=== PATIENT | male | born 1945 | race Caucasian/White ===

== ENCOUNTER 2016-11-06 13:00 | Inpatient (IN) | payer MEDICARE, OTHER ==
[~2016-11-06] VITALS: Ht 185.4 cm; Wt 97.7 kg
--- NOTE | ~2016-11-06 | OR ---
PATIENT'S NAME: JAQUELIN CRANDALL [facility] AGE: 71 Y [address] ROOM: [address] [address] [place] [facility] [place] DATE: 11/13/2016 OR/Procedure Report DISCHARGE DATE: FAMILY PHYSICIAN: Gordon Copeland MD ATTENDING PHYSICIAN: DOMINIQUE IVEY SURGEON: Dominique Ivey MD SUPERVISOR RIPRAP PLACING: Srini Hi MD. DATE OF PROCEDURE: 11/13/2016 PREOPERATIVE DIAGNOSIS: Benign prostatic hyperplasia with bladder outlet obstruction. POSTOPERATIVE DIAGNOSIS: Benign prostatic hyperplasia with bladder outlet obstruction. OPERATION PERFORMED: Robotic-assisted laparoscopic simple prostatectomy. ANESTHESIA ADMINISTERED: General endotracheal anesthesia. INDICATIONS FOR PROCEDURE: The patient is a pleasant 71-year-old male with history of BPH with bladder outlet obstruction. His symptoms had been refractory to pharmacologic therapy. The patient was explained the risks, benefits, indications, and alternatives to above procedure and wished to proceed and consented freely. DESCRIPTION OF OPERATION: The patient was brought back to the operating room, where he was placed on the OR table in the supine position. A surgical time- out was called where patient identification, surgical site, and procedure was then verified. The patient then underwent successful administration of general endotracheal anesthesia. The patient was then moved and placed in a low lithotomy position. His abdomen and genital area were then prepped and draped in the usual sterile fashion. The patient was then placed in Trendelenburg position. A Hill catheter had been anchored utilizing a 16- Nigerian catheter. We then made a supraumbilical incision. The rectus fascia was grasped and elevated, and we pierced the peritoneum with a Veress needle and insufflated to 15 mmHg. We then passed an 8 mm non-bladed trocar easily into the peritoneum. We immediately passed the laparoscope and did not observe any injury to internal structure, so we placed 4 additional trocars, two 8 mm trocars in the right abdomen and an 8 mm and 12 mm trocar in the left abdomen in the routine positions for the robotic technique. The da Castro Xi robot was then docked and used for the remainder of the case. I began by opening up the posterior bladder wall near the dome and dropped down in posterior bladder flap where I was able to easily view his bladder neck and prostate at this point. After making the cystotomy, I placed a Vicryl retraction suture in his median lobe and this was used to elevate his prostate PATIENT'S NAME: JAQUELIN CRANDALL [facility] AGE: 71 Y [address] ROOM: [id number] [place], [place] [address] [place] [facility] [place] DATE: 11/13/2016 OR/Procedure Report DISCHARGE DATE: FAMILY PHYSICIAN: Gordon Copeland MD ATTENDING PHYSICIAN: DOMINIQUE IVEY and better visualize the junction of his bladder neck and prostate and I could also easily view the ureteral orifices at this point. I then started by making a posterior incision in the mucosa overlying the adenoma. Once the plane between the prostate capsule and the adenoma was identified, I began performing enucleation of the prostate using monopolar scissors and blunt dissection. I continued in this plane between the prostate capsule and adenoma. I extended my mucosal incision circumferentially around the prostate. I was able to successfully enucleate the entire prostate adenoma from the prostatic fossa, and divided the urethra at the prostatic apex. Hemostasis was obtained by direct cautery and suture ligation in the prostatic fossa. I utilized a 2-0 V-Loc suture to advance the bladder mucosa down into the prostatic fossa. Hemostasis was inspected for and was adequate. Given some urethral stenosis, we did have to gently dilate his meatus using male urethral sounds and then was able to place a 22-Nigerian 3-way Hill catheter and the balloon was inflated to 40 mL and the cystotomy was closed in 2 layers using 2-0 V-Loc running sutures. The bladder was irrigated and no leak was noted and our closure was watertight. The prostate adenoma was placed in an EndoCatch bag. The robot was then undocked. The EndoCatch bag was drawn up through the midline wound. All trocars were removed. The supraumbilical incision was extended to allow for removal of the prostate adenoma. The rectus fascia was then reapproximated with a heavy PDS suture and the skin was closed with running subcuticular stitches. All wounds were infiltrated with Marcaine and covered with Dermabond. The patient was then taken out of the lithotomy position where he was then extubated without event, transferred to the recovery bed and transported to the recovery room in good condition. COMPLICATIONS: None. ESTIMATED BLOOD LOSS: 100 mL. SPECIMENS: Prostate adenoma for pathologic analysis. DRAINS: Indwelling 22-Nigerian 3-way Hill catheter to continuous bladder irrigation. FOLLOWUP PLAN: We will plan to admit the patient overnight for observation and wean him off the irrigation by tomorrow morning with likely discharge home on postoperative day #2. DOMINIQUE IVEY MD GP/modl PATIENT'S NAME: JAQUELIN CRANDALL [facility] AGE: 71 Y [address] ROOM: [place] [address] [place]: [facility] [place]MIT DATE: 11/13/2016 OR/Procedure Report DISCHARGE DATE: FAMILY PHYSICIAN: Gordon Copeland MD ATTENDING PHYSICIAN: DOMINIQUE IVEY /[id number] CC: Gordon Copeland MD d: 11/13/16 1052 t: 11/18/16 0938, OPERATIVE SUMMARY
--- NOTE | ~2016-11-06 | DS ---
PATIENT'S NAME: JAQUELIN CRANDALL [facility] AGE: 71 Y [address] ROOM: [address] [address] LOCATION: [facility] ADMIT DATE: 11/13/2016 Discharge Summary DISCHARGE DATE: 11/19/2016 FAMILY PHYSICIAN: Gordon Copeland MD ATTENDING PHYSICIAN: Dominique Ivey ADMISSION DIAGNOSIS: Benign prostatic hyperplasia with bladder outlet obstruction. DISCHARGE DIAGNOSIS: Benign prostatic hyperplasia with bladder outlet obstruction. OPERATION PERFORMED: Robotic-assisted laparoscopic simple prostatectomy. INDICATIONS FOR PROCEDURE: The patient is a pleasant 71-year-old male with history of BPH with bladder outlet obstruction, whose symptoms have been refractory to pharmacologic therapy. The patient ultimately opted for operative intervention. HOSPITAL COURSE: The patient underwent the above-stated procedure, which was a Robotic-assisted laparoscopic simple prostatectomy without complication. Prior to discharge home, we were able to wean him off the continuous bladder irrigation, and he was passing flatus and tolerating regular diet. Also, his pain was well controlled prior to discharge home. During his hospitalization, he did have several clots, which we were having difficulty freeing with his indwelling catheter, which was exchanged out for a 24-Telugu Michelle clot evacuation catheter. DISCHARGE CONDITION: Stable. FOLLOWUP PLAN: We will plan to have the patient back for followup in 1 week for catheter removal and a trial of void. He was given routine discharge instructions for the robotic-assisted simple prostatectomy. DOMINIQUE IVEY MD GP/modl /[id number] d: 11/23/169 t: 11/24/16 1016, DISCHARGE SUMMARY
[2016-11-06] MEDS ORDERED: CARVEDILOL25 MG PO (13:44)
[2016-11-06] MEDS ORDERED: CARDURA4 MG PO (13:44)
[2016-11-06] MEDS ORDERED: NORVASC2.5 MG PO (13:45)
[2016-11-06] MEDS ORDERED: LIPITOR20 M1 PO (13:45)
[2016-11-06] MEDS ORDERED: LOTENSIN20 MG PO (13:45)
[2016-11-06] MEDS ORDERED: ASPIRIN EC81 MG PO (13:46)
[2016-11-06] MEDS ORDERED: MULTIVITAMINS1 EAC2 PO (13:46)
[2016-11-06] MEDS ORDERED: VITAMIN D2000 UNI1 PO (13:47)
--- NOTE | 2016-11-13 16:20 | NUR ---
Significant event: Received from PACU at 1200. [place] 1 tab for pain. CBI at moderate to fast rate urine is light pink to clear at times. Taking clear liquids good. Abdominal incisions are approximated.
--- NOTE | 2016-11-14 04:24 | NUR ---
Significant Event: Pt alert and oriented. Up to ambulate x 3 this shift and tolerated well. CBI titrated to slow with light pink urine. VSS. Pain controlled with Telephone, last tab given around 2330 with crackers. Will have regular diet for breakfast. May saline lock IV after 6 am. Abdominal incisions approximated with glue, not passing gas at this time. Follow up: Ambulate 5x/day.
[2016-11-14 05:52] LABS: BASOPHIL % 0.1 %; HEMATOCRIT 35.1 % (37.0-53.0); HEMOGLOBIN 12.1 g/dL (11.0-16.0); IMMATURE GRANULOCYTE # 0.1 K/uL (0.0-0.3); IMMATURE GRANULOCYTE % 0.5 %; LYMPHOCYTE % 5.7 %; MCH 31.8 pg (27.0-34.0); MCHC 34.5 gm/dL (32.0-36.5); MCV 92.4 fl (83.0-98.0); MONOCYTE # 1.6 K/uL (0.0-1.0); MONOCYTE % 9.3 %; MPV 10.5 fl (9.4-12.4); NEUTROPHIL # (ANC) 14.2 K/uL (1.4-9.0); NEUTROPHIL % 84.4 %; NRBC % 0 /100WBC (0-0.00); PLATELET COUNT 173 K/uL (150-450); RDW-CV 12.7 % (11.9-14.6)
[2016-11-14 05:53] LABS: WBC 16.8 K/uL (4.0-11.0)
[2016-11-14 06:15] LABS: ANION GAP 12.2 (10.0-19.0); CALCIUM 7.9 mg/dL (8.5-10.5); POTASSIUM 4.2 mMol/L (3.7-5.1)
--- NOTE | 2016-11-14 16:49 | NUR ---
Author Note Category Date Time by LISA OROZCO Cleaner Touch Up Worker Occurred 11/14/161643 KULWINDER Abnormal? N Confidential? N Recorded 11/14/161646 KULWINDER SPOKE TO PATIENT'S SPOUSE AT THE BEDSIDE, PATIENT IS IN THE BATHROOM AT THIS TIME. INTRODUCED CM AND OUR ROLE. PATIENT LIVES IN OWN HOME WITH SPOUSE. HIS SPOUSE VOICES CONCERNS ABOUT KERI GOING HOME WITH THE JONES CATH HOW THEY WILL CARE FOR IT. I ASSURED HER THAT THE NURSES WILL TEACH THEM THE CATH CARE. SHE ANTICIPATES THAT KERI WILL DISCHARGE HOME TOMORROW OR SATURDAY. CM WILL CONT TO FOLLOW NEEDED.
--- NOTE | 2016-11-14 16:52 | NUR ---
Significant Event: Alert and oriented X 3. Room air. SBP 140's and 150's. HR 60's and 80's. CBI running slow 2225 ml out this shift. Walked in hallway X 3 this shift. Up with 1 assist walker and gait belt. Peripheral IV to left forearm. 4 lap sites and 1 incision mid abdomen, closed with glue. Patient does have an allery to petroleum, do not use neosporin. Regular diet. Pleasant and cooperative with cares. Follow up:
--- NOTE | 2016-11-15 03:55 | NUR ---
Significant Event: PT AO. VSS ON RA, AFEBRILE. IV SALINE LOCKED L FA. TOLERATING REGULAR DIET. JONSE WITH CBI RUNNING SLOW-MODERATE RATE. PRN NORCO X1 AT 2049, RELIEF NOTED. PT C/O ABDOMEN FEELING TIGHT AND GAS PAINS. AMBULATED IN LEONARD MULTIPLE TIMES WITH SBA. TRIED TO HAVE BM, BUT UNABLE. DID GIVE PT PRUNE JUICE. PT STATES RELIEF FROM AMBULATION. INCISIONS TO ABDOMEN X5, GLUE. Follow up: AMBULATE, MONITOR CBI
[2016-11-15 07:13] LABS: BASOPHIL # 0.1 K/uL (0.0-0.2); BASOPHIL % 0.4 %; EOSINOPHIL # 0.2 K/uL (0.0-0.5); HEMATOCRIT 36.6 % (37.0-53.0); HEMOGLOBIN 12.5 g/dL (11.0-16.0); IMMATURE GRANULOCYTE # 0.1 K/uL (0.0-0.3); IMMATURE GRANULOCYTE % 0.6 %; LYMPHOCYTE # 2.5 K/uL (0.8-4.0); LYMPHOCYTE % 15.3 %; MCHC 34.2 gm/dL (32.0-36.5); MCV 93.6 fl (83.0-98.0); MONOCYTE # 1.6 K/uL (0.0-1.0); MONOCYTE % 9.9 %; MPV 10.6 fl (9.4-12.4); NEUTROPHIL # (ANC) 11.9 K/uL (1.4-9.0); NEUTROPHIL % 72.8 %; NRBC % 0 /100WBC (0-0.00); PLATELET COUNT 185 K/uL (150-450); RBC 3.91 M/uL (3.50-5.50); RDW-CV 13.2 % (11.9-14.6)
[2016-11-15 07:14] LABS: WBC 16.3 K/uL (4.0-11.0)
--- NOTE | 2016-11-15 16:46 | NUR ---
Significant Event: patient alert and oriented x3. c/o gas pains, ambulating in gibson and up to chair several times this shift. had small liquid bm x2. incisions to abdomen x5, approximated, no drainage. CBI running slow-moderate rate, had clots at times, irrigated x2 with relief noted. received norco 1 tab x2 last at 1415, with relief. Follow up:
--- NOTE | 2016-11-16 03:57 | NUR ---
Patient is alert and oriented, hypertensive, on room air. Up ad beatriz, occassionally needs help to stand due to pain. CBI infusing at a slow to moderate rate. His urine will darken and have some small clots when he stands and ambulates. Has not had to be irrigated this shift. 2625ml out. 1 BM this shift and a lot of gas. Kingsley given x1 at 2129. 4 laps sites and a midline incision are glued.
[2016-11-16 04:59] LABS: BASOPHIL # 0.1 K/uL (0.0-0.2); BASOPHIL % 0.5 %; EOSINOPHIL # 0.3 K/uL (0.0-0.5); EOSINOPHIL % 2.5 %; HEMATOCRIT 33.2 % (37.0-53.0); HEMOGLOBIN 11.5 g/dL (11.0-16.0); IMMATURE GRANULOCYTE # 0.1 K/uL (0.0-0.3); IMMATURE GRANULOCYTE % 0.4 %; LYMPHOCYTE # 2.4 K/uL (0.8-4.0); LYMPHOCYTE % 21.1 %; MCH 32.1 pg (27.0-34.0); MCHC 34.6 gm/dL (32.0-36.5); MCV 92.7 fl (83.0-98.0); MONOCYTE # 1.3 K/uL (0.0-1.0); MONOCYTE % 11.2 %; MPV 10.4 fl (9.4-12.4); NEUTROPHIL # (ANC) 7.3 K/uL (1.4-9.0); NEUTROPHIL % 64.3 %; NRBC % 0 /100WBC (0-0.00); PLATELET COUNT 187 K/uL (150-450); RBC 3.58 M/uL (3.50-5.50); RDW-CV 12.8 % (11.9-14.6); WBC 11.4 K/uL (4.0-11.0)
--- NOTE | 2016-11-16 19:44 | NUR ---
AAOx3. Cooperative with cares. Up independently in room and hallway for several walks today. CBI running at moderate rate with intermittent clots. Changed out to Michelle 24FR this a.m. as unable to irrigate. No irrigation needed since that time. Hypertensive, afebrile, on RA. Gave [place] x2 today and Morphine x1 with relief. Tried to titrate down, but unable to. Had short episode of shakiness this afternoon; VSS (possibly r/t pain from flatus). Belching and passing flatus frequently. Tolerating regular diet well. Possible d/c tomorrow.
--- NOTE | 2016-11-17 03:11 | NUR ---
Patient is alert and oriented. VSS, on room air, independent. CBI running at slow rate, really light pink, will turn red when up and ambulating. Has a 24 FR Rouche catheter in. Has refused pain meds tonight, he thinks they are constipating him, passing flatus and belching. Possible discharge today.
--- NOTE | 2016-11-17 14:14 | NUR ---
Significant Event: Pt c/o intermittent lower abd pain but refuses pain meds d/t constipation, states tolerable. Up ad beatriz, ambulates in gibson. Hill draining yellow to occasional red urine, CBI running slow. Possible dc to home tomorrow. Passing flatus. Incision to lower abd d/i with skin glue. Follow up:
--- NOTE | 2016-11-18 04:42 | NUR ---
Significant Event: A/O X3 AND COOPERATIVE WITH CARES. C/O LOWER PELVIC PAIN AND GAVE 650MG TYLENOL AT 2353 WITH RELIEF NOTED. CONTINUES TO HAVE PILAR JONES WITH CBI GOING AT SLOW RATE WITH PINK TINGED URINE, OCCASIONAL CLOTS AND RED SEDIMENT. HAD 1900ML ADJUSTED OUTPUT THIS SHIFT. URINE DOES GO TO MARCOS TINGED WITH INCREASED ACTIVITY. HAVE NOT NEEDED TO IRRIGATE THIS SHIFT. IS UP AD IZZY AND WALKS IN LEONARD. DID HAVE 1 BM THIS SHIFT, IS ALSO POSITIVE FOR FLATUS. C/O BLOATING BUT RELIEVED SOME WITH AMBULATION, BELCHING AND PASSING FLATUS. IV SALINE LOCK TO L) FA FLUSHES WELL. VSS AND AFEBRILE. POSSIBLE DC HOME TODAY. Follow up:
[2016-11-18 04:50] LABS: BASOPHIL # 0.1 K/uL (0.0-0.2); BASOPHIL % 0.6 %; EOSINOPHIL # 0.5 K/uL (0.0-0.5); EOSINOPHIL % 5.1 %; HEMATOCRIT 32.1 % (37.0-53.0); HEMOGLOBIN 10.9 g/dL (11.0-16.0); IMMATURE GRANULOCYTE # 0.1 K/uL (0.0-0.3); IMMATURE GRANULOCYTE % 0.7 %; LYMPHOCYTE # 2.2 K/uL (0.8-4.0); LYMPHOCYTE % 21.5 %; MCH 31.5 pg (27.0-34.0); MCV 92.8 fl (83.0-98.0); MONOCYTE # 1.1 K/uL (0.0-1.0); MONOCYTE % 10.8 %; MPV 10.1 fl (9.4-12.4); NEUTROPHIL # (ANC) 6.2 K/uL (1.4-9.0); NEUTROPHIL % 61.3 %; NRBC % 0 /100WBC (0-0.00); PLATELET COUNT 207 K/uL (150-450); RBC 3.46 M/uL (3.50-5.50); RDW-CV 12.8 % (11.9-14.6); WBC 10.1 K/uL (4.0-11.0)
--- NOTE | 2016-11-18 09:37 | NUR ---
A - PT SCREENED D/T LOS. S/P PROSTECTOMY. CBI. ABD PAIN. HT: 73" WT: 215# BMI: 28.4. LABS: GLU 157, HGB/HCT 10.9/32.1. MEDS: BOWEL/NAUSEA, D5NS. DIET: REGULAR. INTAKE: 50-100% NEEDS: 5357-8684 KCAL (20-25 KCAL/KG), 78-98 G PRO (0.8-1 G/KG), 2910 ML FLUID (30 ML/KG) D - NO NUTRITION RELATED DIAGNOSIS IDENTIFIED AT THIS TIME. I - GOAL FOR INTAKE TO REMAIN 50-100% FOR DURATION OF STAY. M/E - WILL ASSIST NEEDED.
--- NOTE | 2016-11-18 14:34 | NUR ---
Significant Event: Pt denies pain. Up ad beatriz in room. Clamped off CBI at 0940 per order. Urine mostly pale pink to laura with a few clots noted. However, when pt ambulates, urine continues to turn red. Dr. Ivey notified after lunch and will put dc on hold for today. Incision approximated with skin glue. Follow up:
--- NOTE | 2016-11-19 04:36 | NUR ---
Patient is alert and oriented, up ad beatriz. Hill is patent with 1500ml out of pink to red urine, becomes more red when he ambulates, Dr. Ivey is aware. Complained of bladder spasms so tylenol was given x1 with relief noted. Can be slightly hypertensive. Possibly dismissal home today. is at bedside.
[2016-11-19] MEDS ORDERED: COLACE100 MG PO (12:55)
[2016-11-19] MEDS ORDERED: NORCO 5-325 TA1 EACH PO (12:56)
--- NOTE | 2016-11-19 15:30 | NUR ---
DISCHARGE: Pt. and were explained discharge instructions, educated on cath cares, leg bag, and cleaning bag. Instructed on TURP aftercare and new medications: norco and colace. Verbalized understanding of teaching, no questions or concerns. IV removed by primary nurse. Taken to front door by aide and driven home by . Left with all belongings and prescriptions.
--- NOTE | 2016-11-19 18:48 | NUR ---
Significant event: Urine conti red in the am and now dark laura. Dismissed to home with .
== END 2016-11-19 14:24 | disposition disaster alternative care site (69) | DRG 708 ==
LOC: GMSU 11-13 05:06
PROVIDERS: ADMIT Urology
PROC: 0VT04ZZ Resection of Prostate, Percutaneous Endoscopic Approach (ICD-10-PCS; principal; 2016-11-13)
PROC: 8E0W4CZ Robotic Assisted Procedure of Trunk Region, Percutaneous Endoscopic Approach (ICD-10-PCS; 2016-11-13)
DX: N40.1 Benign prostatic hyperplasia with lower urinary tract symptoms (principal); N32.89 Other specified disorders of bladder; K21.9 Gastro-esophageal reflux disease without esophagitis; N32.0 Bladder-neck obstruction; E78.5 Hyperlipidemia, unspecified; I10 Essential (primary) hypertension; Z82.49 Family history of ischemic heart disease and other diseases of the circulatory system
CPT/HCPCS: J0690; J1885; J1956; J2001; J2270; J3010; J7030